=== PATIENT | male | born 1955 ===

== ENCOUNTER → 2019-03-20 | Outpatient (CLI) | payer BC ==
--- NOTE | 2019-03-20 11:38 | US ---
EXAMINATION TYPE: US prostate transrectal DATE OF EXAM: 03/20/2019 COMPARISON: NONE CLINICAL HISTORY: R97.2 elevated psa levels. abnormal PSA This examination was performed using the transrectal probe. EXAM MEASUREMENTS: Gland Size: 6.5 x 4.9 x 5.1 cm Volume: 85.1 Predicted PSA: 10.2 Actual PSA (if available):4.5 Peripheral zone appears heterogenous with no prominent masses or lesions visualized. Limited visuali zation. Peripheral zone appears thin in appearance. Initial images show bulky seminal vesicles bilaterally. Prostate gland is markedly enlarged and heter ogeneous appearance with central calcifications. Peripheral zone is thinned without focal nodule. IMPRESSION: Markedly enlarged prostate gland without suspicious focal nodule. Findings consistent wi th BPH. Predicted PSA = volume x 0.12 ng/ml Calculated Volume = 0.5236 x L x W x H
== END | disposition home or self-care (01) ==
LOC: RADUSWWP 10:44
PROVIDERS: ATTEND Internal Medicine
DX: N40.0 Benign prostatic hyperplasia without lower urinary tract symptoms (principal)
CPT/HCPCS: 76872

== ENCOUNTER 2019-08-13 16:38 | Emergency (ER) | payer BC ==
[2019-08-13 16:42] VITALS: TEMP 97.9
[2019-08-13] MEDS ORDERED: GLUCAGON 1 MG/ML VIAL IVP STA ×2 (17:11→17:35)
[2019-08-13] MEDS ORDERED: METOCLOPRAMIDE 5 MG/ML 2 ML VIAL IVP STA (17:11)
[2019-08-13] MEDS ORDERED: NITROGLYCERIN SL TABS 0.4 MG TAB SUBLINGUAL STA (17:12)
[2019-08-13] MEDS ORDERED: SODIUM CHLORIDE 0.9% 1,000 ML IV STA (17:14)
--- NOTE | 2019-08-13 17:14 | ED ---
General Adult HPI - General Chief complaint: ENT Stated complaint: throat problems Time Seen by Provider: 08/13/19 16:46 Source: patient, RN notes reviewed Mode of arrival: ambulatory Limitations: no limitations - History of Present Illness Initial comments: Patient is a pleasant 63-year-old male presenting to the emergency department with difficulty swallowing. Patient was eating chicken approximate 48 hours ago when he feels a piece got stuck. Since that time patient has not been able to tolerate oral intake. Patient has tried multiple times however is not even able to swallow fluids. No dyspnea. No pain. Patient has had somewhat similar symptoms previously however has been able to clear it on his own and this time he is not. - Related Data Home Medications Medication Instructions Recorded Confirmed Acetaminophen Tab [Tylenol] 500 mg PO DAILY PRN 08/13/19 08/13/19 Losartan Potassium 100 mg PO DAILY 08/13/19 08/13/19 amLODIPine [Norvasc] 5 mg PO DAILY 08/13/19 08/13/19 Previous Rx's Medication Instructions Recorded Pantoprazole [Protonix] 40 mg PO DAILY #30 tablet. 08/13/19 Allergies Allergy/AdvReac Type Severity Reaction Status Date / Time No Known Allergies Allergy Verified 08/13/19 18:37 Review of Systems ROS Statement: Those systems with pertinent positive or pertinent negative responses have been documented in the HPI. ROS Other: All systems not noted in ROS Statement are negative. Constitutional: Denies: fever Eyes: Denies: eye pain ENT: Denies: ear pain Respiratory: Denies: dyspnea Cardiovascular: Denies: chest pain Endocrine: Denies: fatigue Gastrointestinal: Denies: abdominal pain Genitourinary: Denies: dysuria Musculoskeletal: Denies: back pain Skin: Denies: rash Past Medical History Past Medical History: Hypertension History of Any Multi-Drug Resistant Organisms: None Reported Past Surgical History: No Surgical Hx Reported Past Psychological History: No Psychological Hx Reported Smoking Status: Current every day smoker Past Alcohol Use History: Rare Past Drug Use History: Marijuana General Exam Limitations: no limitations General appearance: alert, in no apparent distress Head exam: Present: normocephalic Eye exam: Present: normal appearance, PERRL ENT exam: Present: normal oropharynx, other (Poor dentition) Neck exam: Present: normal inspection Respiratory exam: Present: normal lung sounds bilaterally Cardiovascular Exam: Present: regular rate, normal rhythm Expanded Peripheral pulses: 2+: Dorsalis Pedis (R), Dorsalis Pedis (L) GI/Abdominal exam: Present: soft. Absent: distended, tenderness Extremities exam: Present: normal inspection Neurological exam: Present: alert Psychiatric exam: Present: normal affect, normal mood Skin exam: Present: normal color Course Vital Signs 08/13/19 08/13/19 08/13/19 16:39 17:26 18:22 Temperature 97.9 F Pulse Rate 119 H 100 77 Respiratory 18 18 18 Rate Blood Pressure 142/89 132/72 127/66 O2 Sat by Pulse 98 98 95 Oximetry 08/13/19 08/13/19 19:13 19:15 Temperature Pulse Rate 110 H 86 Respiratory 12 12 Rate Blood Pressure 106/55 108/56 O2 Sat by Pulse 94 L 90 L Oximetry - Reevaluation(s) Reevaluation #1: 08/13/19 17:33 Patient is unable to tolerate oral intake after medications. Case was discussed with Dr. Betancur who is getting in touch with endoscopy team. Patient updated. 08/13/19 19:20 Patient had endoscopy by Dr. betancur who states he believes the food particle must have passed just prior to the scope as he did visualize it in the stomach. He did request Protonix for one month. Patient reevaluated and updated. Disposition Clinical Impression: Esophageal foreign body Disposition: HOME SELF-CARE Condition: Stable Instructions (If sedation given, give patient instructions): Esophageal Foreign Body (ED) Additional Instructions: Clear liquid diet for 24 hours followed by soft diet for 24 hours. Please follow-up with GI, number provided. Protonix prescription provided. Return for difficulty breathing, not tolerating oral intake, worsening symptoms or other concerns. Prescription sent to [facility] Prescriptions: Pantoprazole [Protonix] 40 mg PO DAILY #30 tablet.dr Is patient prescribed a controlled substance at d/c from ED?: No Referrals: Fortunato Morocho MD [Primary Care Provider] - 1-2 days Nicholas Betancur MD [STAFF PHYSICIAN] - 1-2 days Time of Disposition: 19:21
[2019-08-13] MEDS ORDERED: SUCCINYLCHOLINE CHLORIDE 100 MG/5 ML SYR IV ONE (18:48)
[2019-08-13] MEDS ORDERED: LIDOCAINE 1% INJ 10MG/ML (20 ML MDV) ONE (18:48)
[2019-08-13] MEDS ORDERED: PROPOFOL 10 MG/ML 20 ML VIAL IV ONE (18:48)
[2019-08-13] MEDS ORDERED: SODIUM CHLORIDE 0.9% 800 ML IV ONE (18:52)
--- NOTE | 2019-08-13 19:06 | P.CONS ---
History of Present Illness - Reason for Consult Consult date: 08/13/19 Foreign body Requesting physician: Cristhian Bucio - Chief Complaint Esophageal foreign body - History of Present Illness 63-year-old male with a medical history significant for hypertension who is presenting to the emergency department with difficulty swallowing. Patient was eating chicken approximate 48 hours ago when he feels a piece got stuck. Since that time patient has not been able to tolerate oral intake. Patient has tried multiple times to try and have the food pass, by drinking Coke and other carbonated beverages however the sensation of a foreign body has persisted. The patient has had issues with dysphagia in the past predominately to solids but has never required hospitalization or endoscopy for the issue. He does report some issues with periumbilical abdominal pain in the past but this improved with a probiotic. No prior EGD or colonosocpy. Review of Systems REVIEW OF SYSTEMS: CONSTITUTIONAL: Denies any fevers, chills, weight change or fatigue. CARDIOVASCULAR: Denies any chest pain, palpitations high or low blood pressures. RESPIRATORY: Denies any shortness of breath, hemoptysis or cough. GENITOURINARY: No dysuria or hematuria. MUSCULOSKELETAL: No weakness reported. SKIN: Denies any new rashes or lesions, jaundice or pallor. PSYCHIATRIC: Denies any depression or anxiety, alcohol use disorder. NEUROLOGY: Denies headache, denies any new focal deficits. EARS/NOSE/THROAT: No recent hearing change, congestion, nasal discharge or sore throat. EYES: No pain in eyes, discharge or change in vision. GASTROINTESTINAL: As per HPI. Past Medical History Past Medical History: Hypertension History of Any Multi-Drug Resistant Organisms: None Reported Past Surgical History: No Surgical Hx Reported Past Psychological History: No Psychological Hx Reported Smoking Status: Current every day smoker Past Alcohol Use History: Rare Past Drug Use History: Marijuana Additional History: Family History: Reviewed with the patient and non contributory to current medical presentation. Medications and Allergies Home Medications Medication Instructions Recorded Confirmed Type Acetaminophen Tab [Tylenol] 500 mg PO DAILY PRN 08/13/19 08/13/19 History Losartan Potassium 100 mg PO DAILY 08/13/19 08/13/19 History amLODIPine [Norvasc] 5 mg PO DAILY 08/13/19 08/13/19 History Allergies Allergy/AdvReac Type Severity Reaction Status Date / Time No Known Allergies Allergy Verified 05/18/20 18:37 Physical Exam Vitals: Vital Signs Temp Pulse Resp BP Pulse Ox 08/13/19 18:22 77 18 127/66 95 08/13/19 17:26 100 18 132/72 98 08/13/19 16:39 97.9 F 119 H 18 142/89 98 Intake and Output 08/13/19 08/13/19 08/13/19 06:59 14:59 22:59 Other: Weight 101.786 kg On physical examination, patient appears comfortable in no apparent distress. HEAD: Normocephalic, atraumatic. EYES: No scleral icterus. No conjunctival injection. MOUTH: No lesions, tongue midline. NECK: Trachea midline, no gross abnormalities. CHEST: Clear to auscultation with no wheezing or rhonchi appreciated. HEART: Regular rate and rhythm. ABDOMEN: Soft. Bowel sounds are positive. No organomegaly. No guarding or rigidity. EXTREMITIES: No pedal edema. SKIN: No rashes, no jaundice. NEUROLOGIC: Alert and oriented x3. No focal deficits. Assessment and Plan (1) Esophageal foreign body Narrative/Plan: 63 yo male with a history of hypertension and intermittent esophageal dysphagia presenting with esophageal body described as chicken for the past 48 hours. Current Visit: Yes Status: Acute Code(s): T18.108A - UNSP FOREIGN BODY IN ESOPHAGUS CAUSING OTH INJURY, INIT SNOMED Code(s): 83935258 Plan: Supportive care Npo Plan for Emergent EGD Patient told to start Prilosec therapy in outpatient setting Further recommendation pending findings of EGD Thank you for allowing us to participate in the care of the patient
[2019-08-13 19:41] VITALS: PULSE 89; RESP 16
[2019-08-13 20:18] VITALS: BP 118/57
--- NOTE | 2019-08-13 21:17 | P.PCN ---
Date of Procedure: 08/13/19 Description of Procedure: BRIEF HISTORY: 63-year-old male with a medical history significant for hypertension who is presenting to the emergency department with difficulty swallowing. Patient was eating chicken approximate 48 hours ago when he feels a piece got stuck. Since that time patient has not been able to tolerate oral intake. Patient has tried multiple times to try and have the food pass, by drinking Coke and other carbonated beverages however the sensation of a foreign body has persisted. The patient has had issues with dysphagia in the past predominately to solids but has never required hospitalization or endoscopy for the issue. He does report some issues with periumbilical abdominal pain in the past but this improved with a probiotic. No prior EGD or colonosocpy. PROCEDURE PERFORMED: Esophagogastroduodenoscopy. PREOPERATIVE DIAGNOSIS: Esophageal foreign body, esophageal dysphagia. ESTIMATED BLOOD LOSS: Minimal. IV sedation per anesthesia. PROCEDURE: After informed consent was obtained, the patient was brought into the endoscopy unit. IV sedation was administered by Anesthesia under continuous monitoring. Initially the Olympus GIF-190 video endoscope was inserted into the mouth. Esophagus intubated without any difficulty. It was gradually advanced into the stomach and duodenum and carefully examined. The bulb and the second part of the duodenum appeared normal. The scope at this time was withdrawn to the stomach, adequately insufflated with air, and upon careful examination, mucosa of the antrum, body, cardia and the fundus appeared normal, with food debris noted in the cardia and fundus of the stomach. The scope was then withdrawn into the es ophagus. The GE junction was located at 39 cm from the incisors. The esophagus was significant for esophagitis and ulceration in the distal esophagus just proximal to the GE junction likely the site of esophageal foreign body. The patient tolerated the procedure well. IMPRESSION: 1. Esophagitis and esophageal ulceration in the distal esophagus. 2. Food debris noted in the cardia and fundus of the stomach. RECOMMENDATIONS: The findings of this examination were discussed with the patient. Okay for discharge home. Patient should follow-up with GI in 2-3 weeks. Patient should be on daily PPI therapy. Okay for full liquid diet today and to advance diet as tolerated..
== END 2019-08-13 20:10 | disposition home or self-care (01) ==
LOC: EC 16:38
DX: T18.128A Food in esophagus causing other injury, initial encounter (principal); K22.10 Ulcer of esophagus without bleeding; F17.200 Nicotine dependence, unspecified, uncomplicated; I10 Essential (primary) hypertension; Z79.899 Other long term (current) drug therapy; X58.XXXA Exposure to other specified factors, initial encounter
CPT/HCPCS: 99284 ×2; 96374 ×2; 96375 ×2; 96361 ×3; 43247; J1610; J2765; J2001; J0330; J2704

== ENCOUNTER → 2023-08-29 | Outpatient (CLI) | payer MEDICARE ==
--- NOTE | 2023-08-29 20:00 | US ---
EXAMINATION TYPE: US Aorta Screening DATE OF EXAM: 08/29/2023 COMPARISON: NONE CLINICAL INDICATION: Male, 67 years old with history of Z13.6 SCREENING; TECHNIQUE: Multiple sonographic images of the abdominal aorta are obtained. FINDINGS: EXAM MEASUREMENTS: Abdominal Aorta: Proximal: 2.1 x 2.2 cm Mid: 2.1 x 2.2 cm Distal: 1.6 x 2.0 cm Bifurcation: Right Iliac: 0.9 x 1.0 cm Left Iliac: 1.0 x 1.1 cm RAILROAD OPERATOR NOTES: Plaque formation noted throughout No abdominal aortic aneurysm. Atherosclerotic plaque throughout the visualized abdominal aorta. IMPRESSION: No abdominal aortic aneurysm.
== END | disposition home or self-care (01) ==
LOC: RADUSWWP 09:45
PROVIDERS: ATTEND Family Medicine
DX: Z13.6 Encounter for screening for cardiovascular disorders (principal)
CPT/HCPCS: 76706